=== PATIENT | male | born 1945 | race Caucasian/White ===

== ENCOUNTER → 2021-06-01 | Outpatient (CLI) | payer MEDICARE, OTHER ==
[2021-06-01] VITALS (16 sets, daily range): BP systolic 106–127; BP diastolic 69–96
[~2021-06-01] VITALS: Ht 185.4 cm; Wt 92.1 kg
[~2021-06-01] MED LIST: ADULT LOW DOSE81 MG PO; CARVEDILOL12.5 MG PO; ENTRESTO 97 MG1 EACH PO; KLOR-CON M2020 MEQ PO; LASIX 40 MG TAB40 MG PO; LIPITOR 20 MG T20 M1 PO; NORVASC5 MG PO
[2021-06-01 11:27] LABS: HEMATOCRIT 35.3 % (42.0-52.0); HEMOGLOBIN 11.5 gm/dL (14.0-18.0); MCH 28.6 pg (26.0-34.0); MCHC 32.6 g/dL (28.0-37.0); MCV 87.8 fL (80.0-100.0); MPV 9.3 fl. (7.2-11.1); RBC 4.02 mil/uL (4.50-6.00); RDW-CV 17.2 % (10.5-14.5); WBC 3.7 thou/uL (4.0-11.0)
[2021-06-01 11:36] LABS: CALCIUM 8.3 mg/dL (8.5-10.1); CREATININE 1.5 mg/dL (0.6-1.3); POTASSIUM 3.7 mmol/L (3.5-5.1)
[2021-06-01 11:41] LABS: ALBUMIN 2.9 g/dL (3.4-5.0); TOTAL BILIRUBIN 2.2 mg/dL (<0.1-1.0); TOTAL PROTEIN 6.2 g/dL (6.4-8.2)
--- NOTE | 2021-06-01 13:05 | CARD ---
[address] [address] CARDIAC CATH REPORT Name: AKIL GARAY Room: [facility] FARIDEH GossKehinde#: [id number] Admission: 06/01/21 Attend Phys: Albino Altamirano MD, F Discharge: Date of : 41 Report #: [id number] THIS REPORT FOR: cc: Albino Valenitn David J. DO Blick, David R. MD [facility] ~ APPROVED REPORT Study performed: 06/01/2021 11:35:45 Patient Details Patient Status: Out-Patient Room #: The patient is a 76 year-old male Event Personnel Adam Oakes RTR Monitor, Hannah Berrios Subedi, Sujita RN RN, Albino Altamirano [employer] Procedures Performed Left Heart Cath w/or w/o Coronaries [id number] [facility] Hemostasis with Hemoband Indication Dyspnea, CardiomyopathyPositive stress test, Chest pain Risk Factors Arterial Hypertension, Hypercholesterolemia Admission/Lab Medications/Medications given during procedure Heparin Unfract., Midazolam (Versed) IV 1 mg, Lidocaine Subcut 4 ml, Lidocaine Subcut 4 ml, Nitroglycerin IA 200 mcg, Verapamil IA 2.5 mg, Heparin IV 4600 units Procedure Narrative The patient was brought electively to the Cardiac Catheterization Laboratory and was prepped and draped in a sterile manner. The right wrist was infiltrated with 2% Lidocaine subcutaneous anesthesia. IV conscious sedation was used throughout procedure with appropriate monitoring and was performed in the presence of a registered nurse who was an independent trained observer other than the physician performing the procedure. A Slender Glidesheath sheath was inserted into the right radial artery. Coronary angiography was performed using coronary diagnostic catheters. The right coronary system was accessed and visualized with a Diagnostic JR4 6[place] [address] CARDIAC CATH REPORT Name: JARRODAKIL Sania Room: [facility]#: [id number] Admission: 06/01/21 Attend Phys: Albino Altamirano MD, F Discharge: Date of : 41 Report #: [id number] coronary system was accessed and visualized with a Diagnostic JL4 6Fr catheter. The left ventricle was accessed and visualized with a Diagnostic Pigtail 6Fr catheter. Left ventricular/Aortic Valve gradient assessed via catheter pullback. Left ventriculogram was performed in MATHIS projection. Closure device was deployed with a 6 Fr vascband. The patient tolerated the procedure well and there were no complications associated with the procedure. There was no hematoma. Intraoperative Conscious Sedation Sedation start time: 1208 Case end Time: 1228 Fentanyl 25 mcg Versed 1 mg Fluoro Time: 2.6 minutes Dose: DAP 56613 cGycm2 746.12 mGy Contrast Type and Amount: Visipaque 120 mL Coronary Angiography The patient's coronary anatomy is co- dominant. Diagnostic Cath Left Main 0% stenosis LAD 0% stenosis Diagonal 1 medium sized vessel with ostial 70% stenosis Circumflex 0% stenosis OM1 medium sized vessel with ostial 50% stenosis and mid 50% stenosi OM2 medium sized vessel with proximal 30% stenosis Right Coronary 50% proximal stenosis Left Ventriculography The left ventricular ejection fraction is estimated to be 15-20%. There is no mitral insufficiency. severe global hypokinesis Hemodynamics The aortic pressure is 96/64 mmHg with a mean of 61 mmHg. The left ventricular pressure is 96/20 mmHg with a mean of mmHg. The left ventricular end diastolic pressure is 25 mmHg. There was no gradient across the aortic valve upon pullback. Pullback from the left ventricle to the aorta revealed no gradient across the [place] [address] CARDIAC CATH REPORT Name: AKIL GARAY Room: [facility]#: [id number] Admission: 06/01/21 Attend Phys: Albino Altamirano MD, F Discharge: Date of : 41 Report #: [id number] 1. 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 2. LVEF 15-20% 3. nonischemic cardiomyopathy Recommendations Aggressive Medical Therapy <ELECTRONICALLY SIGNED> By: Albino Altamirano MD, [facility] 06/01/21 1304 1304 1304Dbhavesh Altamirano MD, FACC /INF
--- NOTE | 2021-06-01 13:07 | EKG ---
[place] [address] ELECTROCARDIOGRAM REPORT Name: AKIL GARAY Room: [facility]#: [id number] Admission: 06/01/21 Attend Phys: Albino Altamirano MD Discharge: Date of : 41 Date of Service: 06/01/21 1122 Report #: [id number] THIS REPORT FOR: //name// [facility] Test Date: 2021-06-01 Test Time: 11:22:46 Pat Name: AKIL LASTLIZZETTE Department: Room: Gender: Inspector [employer]: : 1945 Requested By: Albino Altamirano Order Number: [id number] Reading MD: Albino Altamirano Measurements Intervals Sandy Rate: 64 P: 19 TN: 216 QRS: -18 QRSD: 125 T: QT: 539 QTc: 557 Interpretive Statements Sinus rhythm poor r wave progression nonspecific st segment changes Ventricular premature complex Borderline prolonged TN interval Baseline wander in lead(s) I,II,aVR No previous ECG available for comparison Electronically Signed On 06-01-2021 13:07:17 [employer] EXAMINER by Albino Altamirano [email or web address] <ELECTRONICALLY SIGNED> By: Albino Altamirano MD, FAC 06/01/21 1307 1122 1122 Albino Altamirano MD, [facility] /EPI
== END | disposition home or self-care (01) ==
LOC: M.CL 10:35
PROVIDERS: ATTEND Internal Medicine Cardiovascular Disease
DX: R07.9 Chest pain, unspecified (principal); R94.39 Abnormal result of other cardiovascular function study; I25.10 Atherosclerotic heart disease of native coronary artery without angina pectoris; I42.9 Cardiomyopathy, unspecified; R06.00 Dyspnea, unspecified; I11.0 Hypertensive heart disease with heart failure; I50.22 Chronic systolic (congestive) heart failure; G47.33 Obstructive sleep apnea (adult) (pediatric); Z98.890 Other specified postprocedural states; Z79.899 Other long term (current) drug therapy; Z87.891 Personal history of nicotine dependence; Z20.822 Contact with and (suspected) exposure to COVID-19